=== PATIENT | male | born 1955 | race Caucasian/White ===

== ENCOUNTER 2022-06-30 09:07 | Outpatient (CLI) | payer MEDICARE, BC ==
[2022-06-30] MEDS ORDERED: Iopamidol 300 61% 100 ML VIAL FS ONE (14:19)
== END 2022-06-30 09:08 | disposition home or self-care (01) ==
LOC: CSHCT 09:07
PROVIDERS: ATTEND Family Medicine
DX: R10.9 Unspecified abdominal pain (principal); J90 Pleural effusion, not elsewhere classified; N20.0 Calculus of kidney; I70.90 Unspecified atherosclerosis
CPT/HCPCS: 71260; 74160